=== PATIENT | female | born 1985 | race Caucasian/White ===

== ENCOUNTER 2019-11-12 10:54 | Emergency (ER) | payer BC ==
--- NOTE | 2019-11-12 11:33 | EDM.PDOC ---
ED HPI GENERAL MEDICAL PROBLEM - General Chief Complaint: Genitourinary Problem Stated Complaint: POSS UTI Time Seen by Provider: 11/12/19 11:06 Source of Information: Reports: Patient History Limitations: Reports: No Limitations - History of Present Illness INITIAL COMMENTS - FREE TEXT/NARRATIVE: Patient is a 33-year-old female who presents with complaints of painful urination that started on Thursday. Describes the pain as a sharp pain that occurs after emptying her bladder and lasts about 10 minutes. She denies any burning sensation with urination. She is 11 days after a normal vaginal delivery. Still has a small amount of bleeding. She feels that she may have had a fever as well. Denies any low back pain, excessive uterine cramping, nausea, vomiting, or diarrhea. She does not have a history of urinary tract infections. 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 Her MARBLEIZING MACHINE TENDER is Dr. Dunbar at [facility]. Bladder Pain Score (Numeric/FACES): 1 - Related Data Allergies Allergy/AdvReac Type Severity Reaction Status Date / Time No Known Allergies Allergy Verified 11/12/19 11:11 Home Meds: Home Meds DULoxetine [Cymbalta] 30 mg PO DAILY 10/27/19 [History] IUB074/Iron Fumarate/FA/DSS [ 19 Tablet] 1 tab PO DAILY 10/27/19 [ History] Cholecalciferol (Vitamin D3) [Vitamin D3] 4,000 unit PO DAILY 11/12/19 [History] [place]-3/DHA/Epa/Fish Oil [[place] 3 500 Softgel] 2 cap PO DAILY 11/12/19 [History] Past Medical History MARBLEIZING MACHINE TENDER History: Reports: Psychiatric History: Reports: Anxiety - Past Surgical History Female Surgical History: Reports: Section Social & Family History - Tobacco Use Smoking Status *Q: Never Smoker ED ROS GENERAL - Review of Systems Review Of Systems: Comprehensive ROS is negative, except as noted in HPI. ED EXAM, RENAL/ - Physical Exam Exam: See Below Exam Limited By: No Limitations General Appearance: Alert, WD/WN, No Apparent Distress Respiratory/Chest: No Respiratory Distress, Lungs Clear, Normal Breath Sounds, No Accessory Muscle Use, Chest Non-Tender Cardiovascular: Normal Peripheral Pulses, Regular Rate, Rhythm, No Edema, No Gallop, No JVD, No Murmur, No Rub GI/Abdominal: Normal Bowel Sounds, Soft, No Organomegaly, No Distention, No Abnormal Bruit, No Mass, Tender (Mild suprapubic) Back Exam: Normal Inspection. No: CVA Tenderness (L), CVA Tenderness (R) Neurological: Alert, Oriented, CN II-XII Intact, Normal Cognition, Normal Gait, Normal Reflexes, No Motor/Sensory Deficits Psychiatric: Normal Affect, Normal Mood Skin Exam: Warm, Dry, Intact, Normal Color, No Rash Course - Vital Signs Last Recorded V/S: Last Vital Signs Temp 99.7 F 11/12/19 11:08 Pulse 89 11/12/19 11:08 Resp 16 11/12/19 11:08 BP 137/86 11/12/19 11:08 Pulse Ox 97 11/12/19 11:08 - Orders/Labs/Meds Labs: Laboratory Tests 11/12/19 11/12/19 11/12/19 Range/Units 11:06 11:50 11:50 WBC 7.61 (3.98-10.04) K/mm3 RBC 4.98 (3.98-5.22) M/mm3 Hgb 13.9 (11.2-15.7) gm/dl Hct 43.2 (34.1-44.9) % MCV 86.7 (79.4-94.8) fl MCH 27.9 (25.6-32.2) pg MCHC 32.2 (32.2-35.5) g/dl RDW Std Deviation 44.4 (36.4-46.3) fL Plt Count 478 H D (182-369) K/mm3 MPV 9.2 L (9.4-12.3) fl Neut % (Auto) 61.4 (34.0-71.1) % Lymph % (Auto) 28.5 (19.3-51.7) % [place] % (Auto) 7.5 (4.7-12.5) % Eos % (Auto) 1.8 (0.7-5.8) Baso % (Auto) 0.7 (0.1-1.2) % Neut # (Auto) 4.67 (1.56-6.13) K/mm3 Lymph # (Auto) 2.17 (1.18-3.74) K/mm3 [place] # (Auto) 0.57 H (0.24-0.36) K/mm3 Eos # (Auto) 0.14 (0.04-0.36) K/mm3 Baso # (Auto) 0.05 (0.01-0.08) K/mm3 Sodium 144 (136-145) mEq/L Potassium 4.0 (3.5-5.1) mEq/L Chloride 107 (98-107) mEq/L Carbon Dioxide 25 (21-32) mEq/L Anion Gap 16.0 H (5-15) BUN 9 (7-18) mg/dL Creatinine 0.8 (0.55-1.02) mg/dL Est Cr Clr Drug Dosing 102.78 mL/min Estimated GFR (MDRD) > 60 (>60) mL/min BUN/Creatinine Ratio 11.3 L (14-18) Glucose 88 (74-106) mg/dL Calcium 9.0 (8.5-10.1) mg/dL Total Bilirubin 0.3 (0.2-1.0) mg/dL AST 15 (15-37) U/L ALT 28 (14-59) U/L Alkaline Phosphatase 116 (46-116) U/L Total Protein 6.8 (6.4-8.2) g/dl Albumin 3.0 L (3.4-5.0) g/dl Globulin 3.8 gm/dL Albumin/Globulin Ratio 0.8 L (1-2) Urine Color Yellow (Yellow) Urine Appearance Clear (Clear) Urine pH 6.5 (5.0-8.0) Ur Specific [place] 1.015 (1.005-1.030) Urine Protein Negative (Negative) Urine Glucose (UA) Negative (Negative) Urine Ketones Negative (Negative) Urine Occult Blood Negative (Negative) Urine Nitrite Negative (Negative) Urine Bilirubin Negative (Negative) Urine Urobilinogen 0.2 (0.2-1.0) Ur Leukocyte Esterase Negative (Negative) Urine RBC 0-5 (0-5) /hpf Urine WBC 0-5 (0-5) /hpf Ur Epithelial Cells 0-5 (0-5) /hpf Urine Bacteria Not seen (FEW) /hpf Urine Mucus Not seen (FEW) /hpf - Re-Assessments/Exams Free Text/Narrative Re-Assessment/Exam: 11/12/19 11:44 Urinalysis was negative for any signs of infection. I have ordered a CBC and CMP. Will contact our on-call CAUL PULLER once these results are available. 11/12/19 12:34 Hematology was grossly unremarkable. Called and spoke with the on-call MARBLEIZING MACHINE TENDER, Dr. Valdez. Discussed patient's symptoms as well as her concern that her blood pressure is higher than normal for her. Dr. Valdez advised that cramping after urination often occurs in the period as the uterus may spasm with emptying of the bladder. Patient's blood pressure is not excessively high at this time although it is high for her. There is no protein in her urine to suggest eclampsia. She states that her bleeding is minimal. She does have a history of retained placenta with her previous , however at this time I do not see any signs to suggest that this could be the case. Discussed with her that if anything should get worse I would recommend that she return at that point we would pursue a ultrasound however based on her symptoms and work-up an ultrasound would not be warranted at this time. Discharge instructions as documented Departure - Departure Time of Disposition: 12:43 Disposition: Home, Self-Care 01 Condition: Good Clinical Impression: Dysuria - Discharge Information *PRESCRIPTION DRUG MONITORING PROGRAM REVIEWED*: No *COPY OF PRESCRIPTION DRUG MONITORING REPORT IN PATIENT SHER: No Instructions: Dysuria Referrals: Luiz Santiago MD [Primary Care Provider] - Forms: ED Department Discharge Additional Instructions: You were seen in the emergency department today for suprapubic pain after urinating. A work-up was completed including blood work as well as urinalysis. The results of this were normal. There was no signs of infection in your urine. Your white blood cells, which are generalized indicator of infection, are also normal. The on-call MARBLEIZING MACHINE TENDER was consulted. As we discussed, cramping after urination can be normal during the period while your uterus is still corbin down to normal size. I would recommend that you call and speak with your MARBLEIZING MACHINE TENDER on Thursday morning to update her of the symptoms so that they may be monitored. If you should experience any worsening symptoms, such as increased pelvic pain, increased bleeding, or increased fever, we would recommend that you return to the emergency department. Sepsis Event Note - Evaluation Sepsis Screening Result: No Definite Risk - Focused Exam Vital Signs: Vital Signs Temp Pulse Resp BP Pulse Ox 11/12/19 11:08 99.7 F 89 16 137/86 97 Date Exam was Performed: 11/12/19 Time Exam was Performed: 12:34
== END 2019-11-12 13:01 | disposition home or self-care (01) ==
LOC: JD.ED 10:54
DX: O90.89 Other complications of the puerperium, not elsewhere classified (principal); R30.0 Dysuria; Z79.899 Other long term (current) drug therapy
CPT/HCPCS: 36415; 80053; 81001; 85025; 99282; 99283

== ENCOUNTER 2021-01-10 13:49 | Emergency (ER) | payer BC ==
[2021-01-10] MEDS ORDERED: Ondansetron 4 MG/2 ML SDV IVPUSH ONE (14:33)
[2021-01-10] MEDS ORDERED: HYDROmorphone 1 MG/ML Syringe IVPUSH STA (14:33)
[2021-01-10] MEDS ORDERED: Sodium Chloride 0.9% 10 ML Syringe FLUSH PRN ×2 (14:33→14:42)
[2021-01-10] MEDS ORDERED: Iopamidol 612 MG/ML 100 ML Bottle IVPUSH ONE (14:42)
[2021-01-10] MEDS ORDERED: Diatrizoate Meglumine/Diatrizoate Sodium 37% 120 ML Bottle PO ONE (14:42)
[2021-01-10] MEDS ORDERED: Sodium Chloride 0.9% 1,000 ML IV SCH (14:45)
--- NOTE | 2021-01-10 14:49 | EDM.PDOC ---
ED HPI GENERAL MEDICAL PROBLEM - General Chief Complaint: Chest Pain Stated Complaint: CHEST PAIN/GALLBLADDER COMPLAINT Time Seen by Provider: 01/10/21 14:33 Source of Information: Reports: Patient, RN Notes Reviewed History Limitations: Reports: No Limitations - History of Present Illness INITIAL COMMENTS - FREE TEXT/NARRATIVE: Patient is a 35-year-old female who presents to the ER today for her right upper quadrant/right lower chest pain. Patient has a history of gallstone/gallbladder issues when she was . She notes that she has had occasional flareups since then. Patient states that this pain started yesterday, and her right upper quadrant, and radiates into her right back. She states when the pain is severe, it is very sharp and takes her breath away. She has had some nausea and vomiting with this. She notes that she ate a summer sausage sandwich for lunch yesterday, chicken broth for supper last night, and had some crackers or cereal today for lunch at around 1230. She is not been able to keep anything or much down otherwise. Due to the pain and nausea. She is complaining of some diarrhea today as well, as she has not really had much for solid foods. She states that the stools have been loose all day. Patient has had a previous ultrasound on her gallbladder, but it has not been removed. She denies any other abdominal surgeries other than a . Patient notes that her fever at home, was as high as 100 F, temperature at time of triage is 100.3 F. Patient sees Giana Palmer for female needs, but has no other primary care p rovider at this time. Right Chest Pain Score (Numeric/FACES): 8 - Related Data Allergies Allergy/AdvReac Type Severity Reaction Status Date / Time No Known Allergies Allergy Verified 01/10/21 14:21 Home Meds: Home Meds DULoxetine [Cymbalta] 30 mg PO DAILY 10/27/19 [History] Prenat 115/Iron Fum/Folic/Dss [ 19 Tablet] 1 tab PO DAILY 10/27/19 [History] Cholecalciferol (Vitamin D3) [Vitamin D3] 2,000 unit PO DAILY 11/12/19 [History] [place]-3/DHA/Epa/Fish Oil [[place] 3 500 Softgel] 1 cap PO DAILY 11/12/19 [History] Acetaminophen/HYDROcodone [Superior 325-5 MG] 1 tab PO Q6H PRN #15 tablet 01/10/21 [Rx] Multivitamin/Iron/Folic Acid [Centrum Women Tablet] 1 tab PO DAILY 01/10/21 [History] Ondansetron [Zofran ODT] 4 mg PO Q8H PRN #15 tab.dis 01/10/21 [Rx] Past Medical History HEENT History: Reports: Impaired Vision Other HEENT History: wears eyeglasses. Respiratory History: Reports: Pneumonia, Recurrent Gastrointestinal History: Reports: Other (See Below) Other Gastrointestinal History: gallbladder issues in past, not removed. Had US done in past. 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 - Infectious Disease History Infectious Disease History: Reports: Chicken Pox, Influenza - Past Surgical History HEENT Surgical History: Reports: Tonsillectomy Female Surgical History: Reports: Section Social & Family History - Tobacco Use Tobacco Use Status *Q: Never Tobacco User Second Hand Smoke Exposure: No - Caffeine Use Caffeine Use: Reports: Coffee, Soda, Tea - Alcohol Use Days Per Week of Alcohol Use: 2 Number of Drinks Per Day: 5 Total Drinks Per Week: 10 - Recreational Drug Use Recreational Drug Use: No ED ROS GENERAL - Review of Systems Review Of Systems: Comprehensive ROS is negative, except as noted in HPI. ED EXAM, GI/ABD - Physical Exam Exam: See Below Exam Limited By: No Limitations General Appearance: Alert, WD/WN, No Apparent Distress Eyes: Bilateral: Normal Appearance Respiratory/Chest: No Respiratory Distress, Lungs Clear, Normal Breath Sounds, No Accessory Muscle Use, Chest Non-Tender Cardiovascular: Normal Peripheral Pulses, Regular Rate, Rhythm, No Edema GI/Abdominal Exam: Normal Bowel Sounds, Soft, No Distention, No Mass, Tender (RUQ) Extremities: Normal Inspection, Normal Capillary Refill Neurological: Alert, Oriented, Normal Cognition, No Motor/Sensory Deficits Psychiatric: Normal Affect, Normal Mood Skin Exam: Warm, Dry, Intact, Normal Color, No Rash #1 Interpretation EKG Date: 01/10/21 Time: 13:57 Rhythm: NSR Rate (Beats/Min): 77 [place]: LAD-Left [place] Deviation (-4 ) P-Wave: Present QRS: Normal ST-T: Normal QT: Normal Comparison: NA - No Prior EKG EKG Interpretation Comments: No obvious ischemia or acute ST changes noted, reviewed by myself and Dr. Clemente. Course - Vital Signs Last Recorded V/S: Last Vital Signs Temp 98.7 F 01/10/21 18:36 Pulse 88 01/10/21 18:36 Resp 18 01/10/21 18:36 BP 99/62 01/10/21 18:36 Pulse Ox 97 01/10/21 18:36 - Orders/Labs/Meds Orders: Active Orders 24 hr Category Date Time Status Peripheral IV Care [RC] . DIRECTED Care 01/10/21 14:34 Ordered Sodium Chloride 0.9% [Normal Saline] 1,000 ml Med 01/10/21 14:45 Ordered IV ASDIRECTED Sodium Chloride 0.9% [Saline Flush] Med 01/10/21 14:33 Ordered 10 ml FLUSH ASDIRECTED PRN Sodium Chloride 0.9% [Saline Flush] Med 01/10/21 14:42 Active 10 ml FLUSH ONETIME PRN Peripheral IV Insertion Adult [OM.PC] Routine Oth 01/10/21 14:34 Ordered Medication Orders Sodium Chloride (Normal Saline) 1,000 mls @ 999 mls/hr IV ASDIRECTED GINGER Last Admin: 01/10/21 14:53 Dose: 999 mls/hr Documented by: ALANA Sodium Chloride (Sodium Chloride 0.9% 10 Ml Syringe) 10 ml FLUSH ASDIRECTED PRN PRN Reason: Keep Vein Open Last Admin: 01/10/21 14:51 Dose: 10 ml Documented by: GINGERUHEI Sodium Chloride (Sodium Chloride 0.9% 10 Ml Syringe) 10 ml FLUSH ONETIME PRN PRN Reason: IV FLUSH Last Admin: 01/10/21 16:03 Dose: 10 ml Documented by: YAIMA Labs: Laboratory Tests 01/10/21 01/10/21 01/10/21 Range/Units 14:05 14:05 16:00 WBC 3.56 L (3.98-10.04) K/mm3 RBC 4.90 (3.98-5.22) M/mm3 Hgb 14.7 (11.2-15.7) gm/dl Hct 44.5 (34.1-44.9) % MCV 90.8 D (79.4-94.8) fl MCH 30.0 (25.6-32.2) pg MCHC 33.0 (32.2-35.5) g/dl RDW Std Deviation 42.6 (36.4-46.3) fL Plt Count 254 D (182-369) K/mm3 MPV 9.8 (9.4-12.3) fl Neutrophils % (Manual) 60 (40-60) % Band Neutrophils % 1 (0-10) % Lymphocytes % (Manual) 21 (20-40) % Atypical Lymphs % 0 % Monocytes % (Manual) 11 H (2-10) % Eosinophils % (Manual) 4 (0.7-5.8) % Basophils % (Manual) 3 H (0.1-1.2) Platelet Estimate Adequate RBC Morph Comment Normal Sodium 142 (136-145) mEq/L Potassium 3.7 (3.5-5.1) mEq/L Chloride 104 (98-107) mEq/L Carbon Dioxide 28 (21-32) mEq/L Anion Gap 13.7 (5-15) BUN 7 (7-18) mg/dL Creatinine 0.7 (0.55-1.02) mg/dL Est Cr Clr Drug Dosing 111.16 mL/min Estimated GFR (MDRD) > 60 (>60) mL/min BUN/Creatinine Ratio 10.0 L (14-18) Glucose 88 (74-106) mg/dL Calcium 8.7 (8.5-10.1) mg/dL Total Bilirubin 0.4 (0.2-1.0) mg/dL GGT 46 (5-55) U/L AST 62 H (15-37) U/L ALT 120 H (14-59) U/L Alkaline Phosphatase 76 (46-116) U/L Total Protein 7.5 (6.4-8.2) g/dl Albumin 3.8 (3.4-5.0) g/dl Globulin 3.7 gm/dL Albumin/Globulin Ratio 1.0 (1-2) Lipase 93 (73-393) U/L Urine Color (Yellow) Urine Appearance (Clear) Urine pH (5.0-8.0) Ur Specific [place] (1.005-1.030) Urine Protein (Negative) Urine Glucose (UA) (Negative) Urine Ketones (Negative) Urine Occult Blood (Negative) Urine Nitrite (Negative) Urine Bilirubin (Negative) Urine Urobilinogen (0.2-1.0) Ur Leukocyte Esterase (Negative) Urine RBC (0-5) /hpf Urine WBC (0-5) /hpf Ur Squamous Epith Cells (0-5) /hpf Urine Bacteria (FEW) /hpf Urine Mucus (FEW) /hpf Urine HCG, Qual (NEGATIVE) Influenza Type A RNA Negative (NEGATIVE) Influenza Type B RNA Negative (NEGATIVE) SARS-CoV-2 RNA (STAR) Negative (NEGATIVE) 01/10/21 01/10/21 Range/Units 16:15 16:15 WBC (3.98-10.04) K/mm3 RBC (3.98-5.22) M/mm3 Hgb (11.2-15.7) gm/dl Hct (34.1-44.9) % MCV (79.4-94.8) fl MCH (25.6-32.2) pg MCHC (32.2-35.5) g/dl RDW Std Deviation (36.4-46.3) fL Plt Count (182-369) K/mm3 MPV (9.4-12.3) fl Neutrophils % (Manual) (40-60) % Band Neutrophils % (0-10) % Lymphocytes % (Manual) (20-40) % Atypical Lymphs % % Monocytes % (Manual) (2-10) % Eosinophils % (Manual) (0.7-5.8) % Basophils % (Manual) (0.1-1.2) Platelet Estimate RBC Morph Comment Sodium (136-145) mEq/L Potassium (3.5-5.1) mEq/L Chloride (98-107) mEq/L Carbon Dioxide (21-32) mEq/L Anion Gap (5-15) BUN (7-18) mg/dL Creatinine (0.55-1.02) mg/dL Est Cr Clr Drug Dosing mL/min Estimated GFR (MDRD) (>60) mL/min BUN/Creatinine Ratio (14-18) Glucose (74-106) mg/dL Calcium (8.5-10.1) mg/dL Total Bilirubin (0.2-1.0) mg/dL GGT (5-55) U/L AST (15-37) U/L ALT (14-59) U/L Alkaline Phosphatase (46-116) U/L Total Protein (6.4-8.2) g/dl Albumin (3.4-5.0) g/dl Globulin gm/dL Albumin/Globulin Ratio (1-2) Lipase (73-393) U/L Urine Color Yellow (Yellow) Urine Appearance Clear (Clear) Urine pH 6.5 (5.0-8.0) Ur Specific [place] 1.015 (1.005-1.030) Urine Protein Negative (Negative) Urine Glucose (UA) Negative (Negative) Urine Ketones Negative (Negative) Urine Occult Blood Negative (Negative) Urine Nitrite Negative (Negative) Urine Bilirubin Negative (Negative) Urine Urobilinogen 0.2 (0.2-1.0) Ur Leukocyte Esterase Negative (Negative) Urine RBC 0-5 (0-5) /hpf Urine WBC 0-5 (0-5) /hpf Ur Squamous Epith Cells 0-5 (0-5) /hpf Urine Bacteria Occasional (FEW) /hpf Urine Mucus Not seen (FEW) /hpf Urine HCG, Qual Negative (NEGATIVE) Influenza Type A RNA (NEGATIVE) Influenza Type B RNA (NEGATIVE) SARS-CoV-2 RNA (STAR) (NEGATIVE) Meds: Medications Generic Name Dose Route Start Last Admin Trade Name Freq PRN Reason Stop Dose Admin Sodium Chloride 1,000 mls @ 999 mls/hr 01/10/21 14:45 01/10/21 14:53 Normal Saline IV 999 mls/hr ASDIRECTED GINGER Administration Sodium Chloride 10 ml 01/10/21 14:33 01/10/21 14:51 Sodium Chloride 0.9% 10 Ml Syringe FLUSH 10 ml ASDIRECTED PRN Administration Keep Vein Open Sodium Chloride 10 ml 01/10/21 14:42 01/10/21 16:03 Sodium Chloride 0.9% 10 Ml Syringe FLUSH 10 ml ONETIME PRN Administration IV FLUSH Discontinued Medications Generic Name Dose Route Start Last Admin Trade Name Freq PRN Reason Stop Dose Admin Diatrizoate Meglum/Diatrizoate Sod 120 ml 01/10/21 14:42 01/10/21 16:03 Diatrizoate Meglumine/Diatrizoate Sodium 37% 120 Ml Bottle PO 01/10/21 14:43 30 ml ONETIME ONE Administration Hydromorphone HCl 1 mg 01/10/21 14:33 01/10/21 14:51 Hydromorphone 1 Mg/Ml Syringe IVPUSH 01/10/21 14:34 1 mg ONETIME STA Administration Iopamidol 100 ml 01/10/21 14:42 01/10/21 16:02 Iopamidol 612 Mg/Ml 100 Ml Bottle IVPUSH 01/10/21 14:43 100 ml ONETIME ONE Administration Iopamidol 25 ml 01/10/21 15:33 01/10/21 16:02 Iopamidol 612 Mg/Ml 50 Ml Sdv IVPUSH 01/10/21 15:34 50 ml ONETIME ONE Administration Ondansetron HCl 4 mg 01/10/21 14:33 01/10/21 14:49 Ondansetron 4 Mg/2 Ml Sdv IVPUSH 01/10/21 14:34 4 mg ONETIME ONE Administration - Re-Assessments/Exams Free Text/Narrative Re-Assessment/Exam: 01/10/21 14:48 Patient presents to the ER for her right upper quadrant abdominal pain/right lower chest pain. EKG was taken at time of triage and demonstrates normal sinus rhythm at [address] abnormalities or change. Reviewed by myself and Dr. Clemente. I do highly suspect gallbladder etiology in nature, patient will have IV placed, get some baseline labs, we will obtain abdomen pelvis CT with IV and oral contrast at this time. Patient will get some pain meds, nausea meds and fluids for ongoing management. 01/10/21 16:39 Patient's laboratory evaluation demonstrates a mildly decreased white blood cell count, which could be typical for viral infection. Patient's laboratory evaluation otherwise is unremarkable. Her CT demonstrates a small amount of gastroesophageal reflux into the distal esophagus. The gallbladder was visualized and contains no calcified gallstones. 01/10/21 16:49 Due to the patient's fever and right upper quadrant abdominal pain, we will go ahead and just get a clear gallbladder ultrasound as well for further evaluation of the gallbladder. Liver enzymes were slightly elevated, but again GGT is normal, lipase was normal. 01/10/21 18:15 The patient's gallbladder ultrasound was also read as normal. I have consulted Dr. Lion on another patient of mine in the ER, and I will go over the patient findings with Dr. Lion when he comes into the ER for ongoing management of this patient's case. 01/10/21 18:30 I was able to talk with Dr. Lion on this case, and he thinks that she would be appropriate for follow-up in the clinic, I will make the patient aware of this and get her discharged home with some pain medication and have her call our clinic tomorrow to schedule appointment hopefully Thursday for ongoing evaluation. Departure - Departure Time of Disposition: 18:36 Disposition: Home, Self-Care 01 Condition: Good Clinical Impression: RUQ abdominal pain - Discharge Information *PRESCRIPTION DRUG MONITORING PROGRAM REVIEWED*: Yes *COPY OF PRESCRIPTION DRUG MONITORING REPORT IN PATIENT SHER: No Prescriptions: Acetaminophen/HYDROcodone [[place] 325-5 MG] 1 tab PO Q6H PRN #15 tablet PRN Reason: Pain Ondansetron [Zofran ODT] 4 mg PO Q8H PRN #15 tab.dis PRN Reason: Nausea Instructions: Abdominal Pain, Adult, [id number] Referrals: Giana Palmer, [facility]ARE PARTNER [Primary Care Provider] - Forms: ED Department Discharge Additional Instructions: You were seen in this ER today for your right upper abdominal pain. Thorough laboratory evaluation was obtained today along with, CT and ultrasound and an EKG, your CT was negative for gallstones at this time, and your ultrasound also demonstrated no sign of gallbladder abnormality at today's visit. Your pain was managed at today's visit with IV pain medications, and some fluids. Your case was discussed with Dr. iLon our general surgeon on-call, and he states he would be able to follow-up with you in outpatient clinic for ongoing management. Please call [phone], tomorrow morning to obtain an appoint with Dr. Lion, hopefully early Thursday for ongoing evaluation. You were given a prescription for a strong pain medication, hydrocodone/acetaminophen 5/325 mg, please take 1 tab every 6 hours as needed for pain not relieved by Tylenol or ibuprofen alone. Please note this medication does contain Tylenol in it, so do not take more than 4000 mg in a 24- hour time span. These medications can be addictive, so please take as few as possible to achieve adequate pain control. These meds can also be quite constipating, recommend that you increase your oral fluid intake and take a stool softener like MiraLAX while taking these medications. Do not drive while taking this medication. You were also given a medication for nausea, you may take 1 tablet every 8 hours dissolvable under your tongue for ongoing nausea relief. These medications were electronically sent to the [place] [facility] located [facility] the [facility]. Please return to the ER at any time if symptoms change or worsen. Sepsis Event Note (ED) - Evaluation Sepsis Screening Result: No Definite Risk - Focused Exam Vital Signs: Vital Signs Temp Pulse Resp BP Pulse Ox 01/10/21 18:36 98.7 F 88 18 99/62 97 01/10/21 14:00 100.3 F 80 20 112/79 96 - My Orders Last 24 Hours: My Active Orders 01/10/21 14:33 Sodium Chloride 0.9% [Saline Flush] 10 ml FLUSH ASDIRECTED PRN 01/10/21 14:34 Peripheral IV Care [RC] . DIRECTED Peripheral IV Insertion Adult [OM.PC] Routine 01/10/21 14:42 Sodium Chloride 0.9% [Saline Flush] 10 ml FLUSH ONETIME PRN 01/10/21 14:45 Sodium Chloride 0.9% [Normal Saline] 1,000 ml IV ASDIRECTED - Assessment/Plan Last 24 Hours: My Active Orders 01/10/21 14:33 Sodium Chloride 0.9% [Saline Flush] 10 ml FLUSH ASDIRECTED PRN 01/10/21 14:34 Peripheral IV Care [RC] . DIRECTED Peripheral IV Insertion Adult [OM.PC] Routine 01/10/21 14:42 Sodium Chloride 0.9% [Saline Flush] 10 ml FLUSH ONETIME PRN 01/10/21 14:45 Sodium Chloride 0.9% [Normal Saline] 1,000 ml IV ASDIRECTED
[2021-01-10] MEDS ORDERED: Iopamidol 612 MG/ML 50 ML SDV IVPUSH ONE (15:33)
--- NOTE | 2021-01-10 16:31 | CT ---
CT abdomen and pelvis Technique: Multiple axial sections were obtained from above the dome of the diaphragm inferiorly through the pubic symphysis. Intravenous and oral contrast was utilized. Delayed images were also obtained through the bladder. Reconstructed coronal and sagittal images were obtained. Comparison: No prior abdominal imaging is available. Findings: Visualized lung bases show nothing acute. Visualized portions of the liver show no discrete abnormality. Small amount of gastroesophageal reflux of contrast into the distal esophagus is seen. Spleen appears within normal limits. Adrenal glands show no nodule. Gallbladder contains no calcified gallstones. Pancreas shows no discrete abnormality. Kidneys show symmetric contrast enhancement with no hydronephrosis or mass. Abdominal aorta shows no aneurysm. No retroperitoneal adenopathy is seen. Appendix is seen which is normal. No pelvic mass or adenopathy is seen. No free fluid or inflammatory change is appreciated. Delayed images show contrast within the distal ureters and within the bladder. Bone window settings were reviewed which appear within normal limits for the patient's age. Impression: 1. Small amount of gastroesophageal reflux into the distal esophagus. 2. No additional abnormality is appreciated on CT study of the abdomen and pelvis. Diagnostic code #2
[2021-01-10 17:00] LABS: CORONAVIRUS COVID-19 NAA NEGATIVE (NEGATIVE)
--- NOTE | 2021-01-10 18:06 | US ---
Limited abdominal ultrasound: Multiple real-time images of the upper right abdomen were obtained. Comparison: Prior abdominal and pelvic CT study performed earlier on the same day (3:48 PM). Liver shows no focal abnormality. Pancreas appears within normal limits. Gallbladder contains no shadowing gallstones. No gallbladder wall thickening or biliary duct dilatation is seen. Right kidney shows no hydronephrosis or mass. Right kidney has a length of 12.2 cm. Proximal aorta measures 1.5 cm which is within normal limits. Inferior vena cava is patent. Main portal vein shows normal hepatopedal flow. Impression: 1. No abnormality is identified on right upper quadrant abdominal ultrasound. Diagnostic code #1
== END 2021-01-10 19:05 | disposition home or self-care (01) ==
LOC: JD.ED 13:49
DX: R10.11 Right upper quadrant pain (principal); Z20.822 Contact with and (suspected) exposure to COVID-19; Z79.899 Other long term (current) drug therapy
CPT/HCPCS: 0240U; 36415; 74177; 76705; 80053; 81001; 81025; 82977; 83690; 85007; 85027; 93005; 96374; 96375; 99284; J1170; J2405; J7030; Q9963; Q9967; 93010

== ENCOUNTER 2021-02-28 07:29 | Day surgery (SDC) | payer BC ==
--- NOTE | 2021-02-27 14:58 | PCM.PREANE ---
Preanesthetic Assessment - Procedure Proposed Procedure: Laparoscopic Cholecystectomy - Anesthesia/Transfusion/Family Hx Anesthesia History: No Prior Anesthesia Family History of Anesthesia Reaction: No Transfusion History: No Prior Transfusion(s) Intubation History: Unknown - Review of Systems General: No Symptoms, Fatigue, Malaise Pulmonary: No Symptoms (ETOH: occasionally Chewing Tobacco:1/2can per day times 13 years.) Cardiovascular: No Symptoms, Palpitations (anxiety related......) Gastrointestinal: Abdominal Pain (10/07: "stomach feels upset"), Diarrhea Neurological: No Symptoms Other: Reports: Liver Problems (elevated liver enzymes), Anxiety - Physical Assessment NPO Status Date: 02/27/21 NPO Status Time: 21:30 Vital Signs: HR: 74 Sat: 95% Temp: 99.1 Resp: 16 B/P: 125/73 Height: 1.7 m Weight: 101 kg ASA Class: 2 Mental Status: Alert & Oriented x3 Airway Class: Mallampati = 2 Dentition: Reports: Normal Dentition (bottom retainer (permanent)), Caries Thyro-Mental Finger Breadths: 3 Mouth Opening Finger Breadths: 3 ROM/Head Extension: Full Lungs: Clear to Auscultation Cardiovascular: Regular Rate, Regular Rhythm, No Murmurs - Lab Values: All labs reviewed and noted and within acceptable ranges to proceed with scheduled procedure. - Imaging/EKG Impressions: EKG: SR rate= 77, poor R wave progression. - Allergies Allergies/Adverse Reactions: Allergies Allergy/AdvReac Type Severity Reaction Status Date / Time chlorhexidine Allergy Burning Verified 02/27/21 13:23 - Anesthesia Plan Pre-Op Medication Ordered: None - Acknowledgements Anesthesia Type Planned: General Anesthesia Pt an Appropriate Candidate for the Planned Anesthesia: Yes Alternatives and Risks of Anesthesia Discussed w Pt/Guardian: Yes Pt/Guardian Understands and Agrees with Anesthesia Plan: Yes PreAnesthesia Questionnaire HEENT History: Reports: Impaired Vision Other HEENT History: wears eyeglasses. Cardiovascular History: Reports: Other (See Below) Other Cardiovascular History: palpitations Respiratory History: Reports: Pneumonia, Recurrent Gastrointestinal History: Reports: Other (See Below) Other Gastrointestinal History: gallbladder issues in past, not removed. Had US done in past. 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 - Infectious Disease History Infectious Disease History: Reports: Chicken Pox, Influenza - Past Surgical History HEENT Surgical History: Reports: Tonsillectomy Other HEENT Surgeries/Procedures: Dental surgery Female Surgical History: Reports: Section - HOME MEDS Home Medications: Home Meds DULoxetine [Cymbalta] 30 mg PO DAILY 10/27/19 [History] Prenat 115/Iron Fum/Folic/Dss [ 19 Tablet] 1 tab PO DAILY 10/27/19 [History] Cholecalciferol (Vitamin D3) [Vitamin D3] 2,000 unit PO DAILY 11/12/19 [History] [place]-3/DHA/Epa/Fish Oil [[place] 3 500 Softgel] 1 cap PO DAILY 11/12/19 [History] Multivitamin/Iron/Folic Acid [Centrum Women Tablet] 1 tab PO DAILY 01/10/21 [His tory] - CURRENT (IN HOUSE) MEDS Current Meds: Current Medications Lactated Ringer's (Ringers, Lactated) 1,000 mls @ 125 mls/hr IV ASDIRECTED GINGER Stop: 02/28/21 23:00 Lidocaine/Sodium Bicarbonate (Lidocaine 1%/Sod Bicarbonate In Ns 8.4% 1 Ml Syringe) 0.25 ml IDERM ONETIME PRN PRN Reason: Prior to IV Start Stop: 02/28/21 18:00 Sodium Chloride (Sodium Chloride 0.9% 10 Ml Syringe) 10 ml FLUSH ASDIRECTED PRN PRN Reason: Keep Vein Open Stop: 02/28/21 18:00
[~2021-02-28 07:29] MED LIST: Lactated Ringers 1,000 ML IV SCH; Lidocaine 1%/Sod Bicarbonate in NS 8.4% 1 ML Syringe IDERM PRN; Sodium Chloride 0.9% 10 ML Syringe FLUSH PRN
[2021-02-28] MEDS ORDERED: fentaNYL 250 MCG/5 ML SDV ONE (07:30)
[2021-02-28] MEDS ORDERED: Ondansetron 4 MG/2 ML SDV ONE (07:30)
[2021-02-28] MEDS ORDERED: Rocuronium 50 MG/5 ML Vial ONE (07:30)
[2021-02-28] MEDS ORDERED: Propofol 200 MG/20 ML SDV ONE (07:30)
[2021-02-28] MEDS ORDERED: diphenhydrAMINE 50 MG/ML SDV ONE (07:30)
[2021-02-28] MEDS ORDERED: fentaNYL 100 MCG/2 ML SDV ONE (07:30)
[2021-02-28] MEDS ORDERED: Ketorolac 30 MG/ML SDV ONE (07:30)
[2021-02-28] MEDS ORDERED: Lidocaine 1% PF 2 ML SDV ONE (07:30)
[2021-02-28] MEDS ORDERED: HYDROmorphone 0.5 MG/0.5 ML Syringe ONE (07:30)
[2021-02-28] MEDS ORDERED: ceFAZolin 1 GM Vial ONE ×3 (07:30)
[2021-02-28] MEDS ORDERED: Midazolam 1 MG/ML 2 ML SDV ONE (07:30)
--- NOTE | 2021-02-28 08:57 | PCM.PRNOTE ---
- Free Text/Narrative Note: Date: 02/28/2021 Operation: laparoscopic cholecystectomy Indication: abnormally low GB EF% on HIDA scan with episodes of RUQ pain Surgeon: Beto Lion MD Findings: normal anatomy, critical view of safety obtained. Small amount of bile spillage. Detailed Report: The patient was taken to the operating room and placed in supine position. General endotracheal anesthesia was initiated and timeout was performed. The abdomen was prepped and draped in usual sterile fashion. A Veress needle was placed the left upper quadrant to establish pneumoperitoneum. Once pneumoperitoneum was established, a needle and syringe were used to aspirate air at the umbilicus. A 5 mm bladed trocar was inserted just inferior to the umbilicus, and a 30 degree 5 mm laparoscope was inserted into the abdomen. There was no injury from Veress needle placement and this was removed under laparoscopic visualization. Additional ports were placed under laparoscopic visualization. Two 5 mm ports were placed at the right upper quadrant, and a 12 mm bladed trocar was placed the subxiphoid area. The fundus of the gallbladder was grasped and retracted cephalad. The infundibulum was grasped and retracted laterally. Dissection ensued, taking visceral peritoneum off the gallbladder at the level of the infundibulum. Cystic structures were identified and skeletonized. A critical view of safety was obtained with clear visualization of the cystic duct and artery. Hemoclips were placed on the structures prior to transection with laparoscopic jaison. The gallbladder was removed from the liver using hook monopolar energy. A small pinhole was made in the gallbladder body during this portion of the operation and there was a small amount of spillage of clear greenish bile. The specimen was placed in an Endo Catch bag and removed through the subxiphoid site. The dissection field was suctioned and appeared clean and dry. The 12 mm port site was closed at the level of fascia with 0 Vicryl using a laparoscopic suture passer. The right upper quadrant ports were removed under laparoscopic visualization and hemostasis was satisfactory. Pneumoperitoneum was released and the umbilical port was removed. Skin incisions were closed with subcuticular Vicryl suture and dressed with Dermabond. A total of 35 cc 0.5% Marcaine with epinephrine was used for local anesthetic at incision sites. The patient tolerated the operation well, was extubated in the operating room and transferred to PACU in good condition.
[2021-02-28] MEDS: Bupivacaine 0.5%/EPINEPHrine 1:200,000 50 ML MDV ONE ×2 (09:27→09:34)
[2021-02-28] MEDS ORDERED: Ondansetron 4 MG/2 ML SDV IVPUSH PRN (09:44)
[2021-02-28] MEDS ORDERED: diphenhydrAMINE 50 MG/ML SDV IVPUSH PRN (09:44)
[2021-02-28] MEDS ORDERED: HYDROmorphone 0.5 MG/0.5 ML Syringe IVPUSH PRN (09:44)
[2021-02-28] MEDS ORDERED: fentaNYL 100 MCG/2 ML SDV IVPUSH PRN (09:44)
--- NOTE | 2021-02-28 10:29 | PCM.POSTAN ---
POST ANESTHESIA ASSESSMENT - MENTAL STATUS Mental Status: Alert, Oriented - VITAL SIGNS Vital Signs: Last Vital Signs Temp 37.3 C 02/28/21 07:50 Pulse 74 02/28/21 07:50 Resp 16 02/28/21 07:50 BP 125/73 02/28/21 07:50 Pulse Ox 74 L 02/28/21 07:50 - RESPIRATORY Respiratory Status: Respiratory Rate WNL, Airway Patent, O2 Saturation Stable, Supplemental Oxygen - CARDIOVASCULAR CV Status: Pulse Rate WNL, Blood Pressure Stable - GASTROINTESTINAL GI Status: Nauseau (pt states getting better after Benedryl) - PAIN Pain Score: 3 ((R) shoulder, achy ) - POST OP HYDRATION Hydration Status: Adequate & Stable
--- NOTE | 2021-02-28 12:21 | PCM48HPAN ---
Post Anesthesia Note - EVALUATION WITHIN 48HRS OF ANESTHETIC Vital Signs in Normal Range: Yes Patient Participated in Evaluation: Yes Respiratory Function Stable: Yes Airway Patent: Yes Cardiovascular Function Stable: Yes Hydration Status Stable: Yes Pain Control Satisfactory: Yes Nausea and Vomiting Control Satisfactory: Yes Mental Status Recovered: Yes Vital Signs: Last Vital Signs Temp 36.7 C 02/28/21 11:15 Pulse 59 L 02/28/21 11:30 Resp 19 02/28/21 11:30 BP 112/76 02/28/21 11:30 Pulse Ox 92 L 02/28/21 11:30
== END 2021-02-28 12:30 | disposition home or self-care (01) ==
LOC: JD.SDS 07:29
PROVIDERS: ATTEND Surgery
DX: K81.1 Chronic cholecystitis (principal); E66.9 Obesity, unspecified; Z79.899 Other long term (current) drug therapy; Z68.36 Body mass index [BMI] 36.0-36.9, adult; Z88.8 Allergy status to other drugs, medicaments and biological substances
CPT/HCPCS: 47562; J3490; J7120; 00790; J0690; J1170; J1200; J1885; J2250; J2405; J2704; J3010

== ENCOUNTER 2021-03-01 05:34 | Emergency (ER) | payer BC ==
[2021-03-01] MEDS ORDERED: HYDROmorphone 0.5 MG/0.5 ML Syringe IVPUSH ONE (06:18)
[2021-03-01] MEDS ORDERED: Ondansetron 4 MG/2 ML SDV IVPUSH ONE (06:18)
--- NOTE | 2021-03-01 06:25 | EDM.PDOC ---
ED HPI GENERAL MEDICAL PROBLEM - General Chief Complaint: Abdominal Pain Stated Complaint: ABDOMINAL PAIN POST GALLBLADDER SURGERY Time Seen by Provider: 03/01/21 05:56 Source of Information: Reports: Patient, Family ( + infant) History Limitations: Reports: No Limitations - History of Present Illness INITIAL COMMENTS - FREE TEXT/NARRATIVE: Mrs. Huerta is a pleasant 35-year-old woman who underwent a laparoscopic cholecystectomy at this facility yesterday morning. She was discharged home with a prescription for oxycodone 5 mg, 1 tab po Q 4 hrs prn, #20, that she could take along with OTC Tylenol or ibuprofen. She states that she was doing well until last evening, when she developed increasing sharp/stabbing right upper quadrant abdominal pain. She states that the pain is made worse with deep breaths or movements. She states that she has taken a total of 3 tablets of oxycodone since, along with ibuprofen, without improvement of her symptoms. No nausea, vomiting, or fever. Here in the ED, the patient is found to be hemodynamically stable, afebrile, saturating 97% on room air. She appears to be mildly uncomfortable, but in no acute distress. Prior to yesterday, the patient denies having a recent fever, chills, sore throat, ear pain, nasal or sinus congestion, cough, dyspnea, chest pain, palpitations, nausea, vomiting, constipation, diarrhea, abdominal pain, urinary symptoms, recent weight gain or weight loss, recent bloody bowel movements or black bowel movements, recent joint aches, headaches, or rashes. The patient's PCP is Giana Palmer NP. Her Surgeon is Dr. Beto Lion. Right Abdomen Pain Score (Numeric/FACES): 9 - Related Data Allergies Allergy/AdvReac Type Severity Reaction Status Date / Time chlorhexidine Allergy Burning Verified 03/01/21 05:48 Home Meds: Home Meds DULoxetine [Cymbalta] 30 mg PO DAILY 10/27/19 [History] Prenat 115/Iron Fum/Folic/Dss [ 19 Tablet] 1 tab PO DAILY 10/27/19 [History] Cholecalciferol (Vitamin D3) [Vitamin D3] 2,000 unit PO DAILY 11/12/19 [History] [place]-3/DHA/Epa/Fish Oil [[place] 3 500 Softgel] 1 cap PO DAILY 11/12/19 [History] Multivitamin/Iron/Folic Acid [Centrum Women Tablet] 1 tab PO DAILY 01/10/21 [History] Melatonin 10 mg PO BEDTIME 02/28/21 [History] [place]-3/DHA/Epa/Fish Oil [[place] 3 500 Softgel] 500 mg PO DAILY 02/28/21 [History] oxyCODONE 5 mg PO Q4H PRN #20 tab 02/28/21 [Rx] Past Medical History HEENT History: Reports: Impaired Vision (wears glasses) Psychiatric History: Reports: Anxiety Endocrine/Metabolic History: Reports: Obesity/BMI 30+ - Infectious Disease History Infectious Disease History: Reports: Chicken Pox, Influenza - Past Surgical History HEENT Surgical History: Reports: Tonsillectomy GI Surgical History: Reports: Cholecystectomy (02/28/2021) Female Surgical History: Reports: Section (x 1) Social & Family History - Tobacco Use Tobacco Use Status *Q: Never Tobacco User Second Hand Smoke Exposure: No - Caffeine Use Caffeine Use: Reports: Coffee - Alcohol Use Alcohol Use History: Yes Alcohol Use Frequency: Socially - Recreational Drug Use Recreational Drug Use: No - Living Situation & Occupation Living situation: Reports: , with Spouse, with Family (3 kids) Occupation: Employed (Self-employed) ED ROS GENERAL - Review of Systems Review Of Systems: Comprehensive ROS is negative, except as noted in HPI. ED EXAM, GI/ABD - Physical Exam Exam: See Below Exam Limited By: No Limitations General Appearance: Alert, WD/WN, No Apparent Distress Eyes: Bilateral: Normal Appearance, EOMI Ears: Normal External Exam, Hearing Grossly Normal Nose: Normal Inspection Throat/Mouth: Normal Inspection, Normal Lips, Normal Voice, No Airway Compromise Head: Atraumatic, Normocephalic Neck: Normal Inspection, Full Range of Motion Respiratory/Chest: No Respiratory Distress, Lungs Clear, Normal Breath Sounds, No Accessory Muscle Use Cardiovascular: Normal Peripheral Pulses, Regular Rate, Rhythm, No Gallop, No JVD, No Murmur, No Rub GI/Abdominal Exam: Normal Bowel Sounds, Soft, No Organomegaly, No Distention, No Abnormal Bruit, No Mass, Tender (Primarily to the right upper quadrant, with minimal tenderness elsewhere. Minimal, if any, andreea-incisional tenderness.) Back Exam: Normal Inspection, Full Range of Motion, NT Extremities: Normal Inspection, Normal Range of Motion, Normal Capillary Refill Neurological: Alert, Oriented, Normal Cognition, No Motor/Sensory Deficits Psychiatric: Normal Affect Skin Exam: Warm, Dry, Intact, Normal Color, No Rash Course - Vital Signs Last Recorded V/S: Last Vital Signs Temp 36.6 C 03/01/21 05:43 Pulse 65 03/01/21 05:43 Resp 20 03/01/21 05:43 BP 133/80 03/01/21 05:43 Pulse Ox 97 03/01/21 05:43 - Orders/Labs/Meds Orders: Active Orders 24 hr Category Date Time Status Sodium Chloride 0.9% [Normal Saline] 1,000 ml Med 03/01/21 06:30 Active IV ASDIRECTED Medication Orders Sodium Chloride (Normal Saline) 1,000 mls @ 150 mls/hr IV ASDIRECTED GINGER Last Admin: 03/01/21 06:33 Dose: 150 mls/hr Documented by: BRINDA Labs: Laboratory Tests 03/01/21 03/01/21 Range/Units 06:30 06:30 WBC 11.28 H (3.98-10.04) K/mm3 RBC 4.30 (3.98-5.22) M/mm3 Hgb 13.1 D (11.2-15.7) gm/dl Hct 39.1 (34.1-44.9) % MCV 90.9 (79.4-94.8) fl MCH 30.5 (25.6-32.2) pg MCHC 33.5 (32.2-35.5) g/dl RDW Std Deviation 43.3 (36.4-46.3) fL Plt Count 340 D (182-369) K/mm3 MPV 9.5 (9.4-12.3) fl Neutrophils % (Manual) 78 H (40-60) % Band Neutrophils % 1 (0-10) % Lymphocytes % (Manual) 13 L (20-40) % Atypical Lymphs % 0 % Monocytes % (Manual) 8 (2-10) % Eosinophils % (Manual) 0 L (0.7-5.8) % Basophils % (Manual) 0 L (0.1-1.2) Platelet Estimate Adequate RBC Morph Comment Normal Sodium 143 (136-145) mEq/L Potassium 3.7 (3.5-5.1) mEq/L Chloride 107 (98-107) mEq/L Carbon Dioxide 24 (21-32) mEq/L Anion Gap 15.7 H (5-15) BUN 7 (7-18) mg/dL Creatinine 0.6 (0.55-1.02) mg/dL Est Cr Clr Drug Dosing 134.53 mL/min Estimated GFR (MDRD) > 60 (>60) mL/min BUN/Creatinine Ratio 11.7 L (14-18) Glucose 129 H (70-99) mg/dL Calcium 8.6 (8.5-10.1) mg/dL Magnesium 1.9 (1.8-2.4) mg/dL Total Bilirubin 0.2 (0.2-1.0) mg/dL AST 69 H (15-37) U/L ALT 93 H (14-59) U/L Alkaline Phosphatase 59 (46-116) U/L Total Protein 6.7 (6.4-8.2) g/dl Albumin 3.2 L (3.4-5.0) g/dl Globulin 3.5 gm/dL Albumin/Globulin Ratio 0.9 L (1-2) Meds: Medications Generic Name Dose Route Start Last Admin Trade Name Freq PRN Reason Stop Dose Admin Sodium Chloride 1,000 mls @ 150 mls/hr 03/01/21 06:30 03/01/21 06:33 Normal Saline IV 150 mls/hr ASDIRECTED GINGER Administration Discontinued Medications Generic Name Dose Route Start Last Admin Trade Name Freq PRN Reason Stop Dose Admin Hydromorphone HCl 0.5 mg 03/01/21 06:18 03/01/21 06:33 Hydromorphone 0.5 Mg/0.5 Ml Syringe IVPUSH 03/01/21 06:19 0.5 mg ONETIME ONE Administration Ondansetron HCl 4 mg 03/01/21 06:18 03/01/21 06:33 Ondansetron 4 Mg/2 Ml Sdv IVPUSH 03/01/21 06:19 4 mg ONETIME ONE Administration - Re-Assessments/Exams Free Text/Narrative Re-Assessment/Exam: 03/01/21 06:19 As above, the patient underwent a laparoscopic cholecystectomy yesterday morning, then developed significant right upper quadrant abdominal pain last evening. She is taking a total of 3 tablets of oxycodone, along with some ibuprofen, without improvement of her symptoms. She is tender to the area on e xam, with minimal tenderness elsewhere on her abdomen. Our concern is for a postoperative bile leak. I have therefore ordered a transabdominal ultrasound, along with some blood work. In the meantime, the patient will be treated with some IV Dilaudid, IV Zofran, and IV fluid. 03/01/21 06:[address] Lion at 06:21. He felt that the imaging would not be helpful this soon after surgery. He agreed with the blood work, but recommended I cancel the ultrasound. 03/01/21 07:27 The patient's CBC is remarkable for mild leukocytosis of 11.28, but with only 1% bandemia, and the remainder of her CBC being unremarkable. Her CMP is remarkable for an anion gap slightly elevated at 15.7, but with a bicarbonate normal at 24, and slight hyperglycemia of 129. Her AST/ALT are mildly elevated at 69/93, respectively, with remainder of her CMP being unremarkable.. Her TBil is well within normal limits at 0.2. Her magnesium level is within normal limits at 1.9. Dr. Lion just dropped by the ED. He has seen the lab results and discussed the situation with the patient. He feels that her pain is normal postoperative pain, and that she is fit for discharge home. Departure - Departure Time of Disposition: 07:28 Disposition: Home, Self-Care 01 Condition: Good Clinical Impression: Postoperative abdominal pain - Discharge Information *PRESCRIPTION DRUG MONITORING PROGRAM REVIEWED*: Not Applicable *COPY OF PRESCRIPTION DRUG MONITORING REPORT IN PATIENT SHER: Not Applicable Referrals: Giana Palmer NP [Primary Care Provider] - Beto Lion MD [Physician] - Forms: ED Department Discharge Additional Instructions: You were seen in the emergency room after developing worsening upper right abdominal pain following a laparoscopic cholecystectomy yesterday. Work-up in the ER included several blood tests, all of which were grossly unremarkable. Your case was discussed with your Surgeon, Dr. Beto Lion, who feels that your pain is normal postoperative pain. You may resume taking oxycodone 5 mg, 1 tablet up to every 4 hours, as needed for pain, along with [id number] Tylenol or ibuprofen. If any other problems, please contact Dr. Lion, or return to the ER for reevaluation. Sepsis Event Note (ED) - Evaluation Sepsis Screening Result: No Definite Risk - Focused Exam Vital Signs: Vital Signs Temp Pulse Resp BP Pulse Ox 03/01/21 05:43 36.6 C 65 20 133/80 97 - My Orders Last 24 Hours: My Active Orders 03/01/21 06:30 Sodium Chloride 0.9% [Normal Saline] 1,000 ml IV ASDIRECTED - Assessment/Plan Last 24 Hours: My Active Orders 03/01/21 06:30 Sodium Chloride 0.9% [Normal Saline] 1,000 ml IV ASDIRECTED
[2021-03-01] MEDS ORDERED: Sodium Chloride 0.9% 1,000 ML IV SCH (06:30)
--- NOTE | 2021-03-01 07:37 | PCM.SN.2 ---
- Free Text/Narrative Note: Mrs. Huerta presented to the ER early this morning, not quite 24 hours out from elective laparoscopic cholecystectomy for gallbladder dyskinesia, with significant LUQ pain. She denies nausea/vomiting. No fever. She took one oxycodone tablet before bed last night. A CBC and CMP were obtained in the ER, showing expected mild leukocytosis and otherwise normal Hgb, total bilirubin. On exam, she is in no distress with normal vitals. I discussed labs with the patient and advised her to rest up and take it easy for the next day or two, taking her oxycodone and tylenol/ibuprofen regularly. She should be okay to go home from the ER, and if any issues worsen or persist she will contact me over the weekend.
== END 2021-03-01 07:40 | disposition home or self-care (01) ==
LOC: JD.ED 05:34
DX: G89.18 Other acute postprocedural pain (principal); R10.11 Right upper quadrant pain; Z90.49 Acquired absence of other specified parts of digestive tract; Z88.5 Allergy status to narcotic agent
CPT/HCPCS: 36415; 80053; 83735; 85007; 85027; 96374; 96375; 99284; J1170; J2405; J7030; 99283